=== PATIENT | female | born 1945 | race Caucasian/White ===

== ENCOUNTER 2020-07-29 18:59 | Inpatient (IN) | payer MEDICARE, OTHER ==
[~2020-07-29] VITALS: Ht 167.6 cm; Wt 83.9 kg
[2020-07-29 19:07] VITALS: BP 132/50
--- NOTE | 2020-07-29 19:07 | NUR ---
Admitted a 75 yrs old female from [facility] at 1830 [facility] ambulance staff. Pt. A/Ox4, verbally responsive and able to make needs known. Senegalese speaking but able to understand Cuban. Notified Attending/Admitting STOGIE PACKER promptly, aware pt. of arrival. V/S taken, placed pt. on isolation precaution for COVID-19. Safety measures in place. Call light and all frequently used items within pt. reach. Will endorsed to oncoming shift accordingly.
--- NOTE | 2020-07-29 19:30 | NUR ---
pt received in bed. Denies pain or SOB at this time. On 4L NC. SR on monitor. Bed is locked and in lowest position. No other issues or concerns at this time.
[2020-07-29 21:18] VITALS: BP 128/47
[2020-07-29] MEDS: CEFTRIAXONE 1 G in IV DEXTROSE 5% 50 ML IV SCH (21:30)
[2020-07-29] MEDS ORDERED: ALBUTEROL SULFATE 8 GM HFA.AER.AD IH PRN (21:30)
[2020-07-29] MEDS ORDERED: ENOXAPARIN SODIUM 40 MG/0.4 ML DISP.SYRIN SQ SCH (21:30)
[2020-07-29] MEDS ORDERED: ONDANSETRON 4 MG/2 ML VIAL IV PRN (21:30)
[2020-07-29] MEDS: AZITHROMYCIN IV 500 MG in IV DEXTROSE 5% 250 ML IV SCH (21:30)
--- NOTE | 2020-07-29 21:45 | NUR ---
waiting for nursing harvest supervisor to bring up Azithromycin and Rocephin antibiotics
--- NOTE | 2020-07-29 21:45 | NUR ---
Waiting for pharmacy to verify Lovenox. Pharmacy already called and notified.
[2020-07-29] MEDS ORDERED: CEFTRIAXONE /D5W 50ML IVPB **ER PYXIS IV ONE (22:32)
[2020-07-29] MEDS ORDERED: AZITHROMYCIN 500 MG VIAL IV ONE (22:32)
[2020-07-30 00:18] VITALS: BP 120/51
[2020-07-30] MEDS: ACETAMINOPHEN 325 MG TABLET PO PRN (00:31)
[2020-07-30 04:18] VITALS: BP 138/55
--- NOTE | 2020-07-30 07:02 | NUR ---
Pt slept throughout the night with no complaints. Denies pain or SOB. Safety and comfort provided. SR on monitor. No other issues or concerns at this time. Will endorse to day shift.
[2020-07-30 07:28] LABS: BASOPHILS % (AUTO) 0.2 % (0.0-2.0); HEMATOCRIT 32.9 % (31.2-41.9); LYMPHOCYTES # (AUTO) 0.9 K/uL (20.0-40.0); LYMPHOCYTES % (AUTO) 8.2 % (20.5-51.5); MEAN CORPUSCULAR HEMOGLOBIN 32.2 uug (24.7-32.8); MEAN CORPUSCULAR HGB CONC 33 g/dL (32.3-35.6); MEAN CORPUSCULAR VOLUME 96.4 fL (75.5-95.3); MONOCYTES # (AUTO) 0.6 K/uL (2.0-10.0); MONOCYTES % (AUTO) 5.3 % (0.0-11.0); NEUTROPHILS # (AUTO) 9.2 K/uL (1.8-8.9); NEUTROPHILS % (AUTO) 86.3 % (38.5-71.5); PLATELET COUNT (AUTO) 332 K/uL (179-408); RED BLOOD CELL COUNT(AUTO) 3.41 MIL/uL (3.63-4.92); WHITE BLOOD COUNT (AUTO) 10.7 K/uL (3.8-11.8)
--- NOTE | 2020-07-30 07:45 | NUR ---
Received PT in bed, awake AO X 4. Language barrier, so office lead needed. PT is cooperative and pleasant. Makes needs known to staff and interacts with staff when engaged to. No acute distress or SOB noted. PT constantly FaceTimes with family. Safety measures provided, call light within reach, bed low and lock. Will continue to monitor.
[2020-07-30 07:59] LABS: BILIRUBIN,TOTAL 0.4 mg/dL (0.2-1.0); CREATININE 0.9 mg/dL (0.6-1.3); POTASSIUM 3.7 mmol/L (3.5-5.1); TOTAL PROTEIN, SERUM 6.9 g/dL (6.4-8.2)
[2020-07-30] MEDS: DEXAMETHASONE SOD PHOSPHATE 4 MG INJ IV SCH ×2 (08:47→09:00)
[2020-07-30] MEDS: AMIODARONE HCL 200 MG TABLET PO SCH ×2 (08:47→21:46)
[2020-07-30] MEDS: FUROSEMIDE 20 MG TABLET PO SCH (08:55)
[2020-07-30] MEDS: APIXABAN 5 MG TABLET PO SCH ×2 (08:55→21:49)
[2020-07-30] MEDS ORDERED: ASPIRIN 81 MG TAB.CHEW PO SCH (09:00)
[2020-07-30 11:52] VITALS: BP 129/52
[2020-07-30 16:00] VITALS: BP 129/56
[2020-07-30] MEDS ORDERED: REMDESIVIR (CHARGED) 200 MG in IV NORMAL SALINE 210 ML IV ONE (17:00)
--- NOTE | 2020-07-30 18:33 | NUR ---
PT in bed, awake AO X 4 with safety measures. Nurse spoke with daughter and explained new order of Remdesimir per physician's order. Nurse answered all daughters concerns. PT seemed more relax and less worried. PT stated content and hopefulness. No acute distress or SOB noted. Vitals documented. No complain of pain noted at this time. PT resting in bed. Safety measures provided, call light within reach, bed low and lock. Will endorse to rouge miller nurse
--- NOTE | 2020-07-30 19:30 | NUR ---
Received patient awake and resting in bed. On 4L NC and tolerating well. SR on monitor. Denies SOB or chest pain at this time. No other issues or concerns
[2020-07-30 20:24] VITALS: BP 120/78
[2020-07-30] MEDS: CEFTRIAXONE 1 G in IV DEXTROSE 5% 50 ML IV SCH (21:46)
[2020-07-30] MEDS: AZITHROMYCIN IV 500 MG in IV DEXTROSE 5% 250 ML IV SCH (22:37)
--- NOTE | 2020-07-30 23:34 | NUR ---
Pts IV infiltrated. Was taken out and ice pack was provided. Pt declines another IV at this time at states she wants to wait till the morning for a new IV placement. Explained the importance of her IV access and the necessity for her IV medications and having IV access due to Telemetry status and patient still declined new IV at this time. IV was taken out with 20min left on Zithromax antibiotics.
[2020-07-31 00:21] VITALS: BP 106/44
[2020-07-31 04:18] VITALS: BP 131/56
--- NOTE | 2020-07-31 06:42 | NUR ---
Pt slept throughout the night. On 4L NC sating at 99%. Denies SOB or pain at this time. Another attempt to start IV was made but patient declined again at this time. MRSA swab collected per order and sent to lab. Pt made aware that urine and sputum sample is needed. Will also make oncoming nurse aware that sample needs to be collected. Safety and comfort provided. No other issues or concerns at this time. Will endorse to day shift.
--- NOTE | 2020-07-31 07:50 | NUR ---
Received PT in bed, awake AO X 4. Language barrier, so car scrubber needed. PT is cooperative and pleasant. Makes needs known to staff and interacts with staff when engaged to. No acute distress or SOB noted. PT constantly FaceTimes with family. No IV site avaliable. PT refused but willing to get it later on. Safety measures provided, call light within reach, bed low and lock. Will continue to monitor.
[2020-07-31 08:16] LABS: BASOPHILS # (AUTO) 0.1 K/uL (0.0-8.0); BASOPHILS % (AUTO) 0.8 % (0.0-2.0); EOSINOPHILS # (AUTO) 0.1 K/uL (0.0-0.7); EOSINOPHILS % (AUTO) 1.3 % (0.0-7.0); HEMATOCRIT 33.1 % (31.2-41.9); HEMOGLOBIN 10.8 g/dL (10.9-14.3); LYMPHOCYTES # (AUTO) 1.4 K/uL (20.0-40.0); LYMPHOCYTES % (AUTO) 19.5 % (20.5-51.5); MEAN CORPUSCULAR HEMOGLOBIN 31.7 uug (24.7-32.8); MEAN CORPUSCULAR HGB CONC 33 g/dL (32.3-35.6); MEAN CORPUSCULAR VOLUME 97.4 fL (75.5-95.3); MONOCYTES # (AUTO) 0.7 K/uL (2.0-10.0); MONOCYTES % (AUTO) 9.4 % (0.0-11.0); NEUTROPHILS # (AUTO) 4.8 K/uL (1.8-8.9); PLATELET COUNT (AUTO) 277 K/uL (179-408)
[2020-07-31 08:25] LABS: BILIRUBIN,DIRECT 0.1 mg/dL (0.0-0.2); BILIRUBIN,TOTAL 0.4 mg/dL (0.2-1.0); CREATININE 0.9 mg/dL (0.6-1.3); POTASSIUM 3.8 mmol/L (3.5-5.1); TOTAL PROTEIN, SERUM 6.5 g/dL (6.4-8.2)
[2020-07-31] MEDS: APIXABAN 5 MG TABLET PO SCH ×2 (09:02→21:30)
[2020-07-31] MEDS: FUROSEMIDE 20 MG TABLET PO SCH (09:02)
[2020-07-31] MEDS: AMIODARONE HCL 200 MG TABLET PO SCH ×2 (09:02→21:30)
[2020-07-31 11:00] VITALS: BP 130/55
[2020-07-31 15:03] VITALS: BP 130/48
--- NOTE | 2020-07-31 17:15 | NUR ---
Nurse attempted to get IV access with no success. Attempted twice and received order from CRACK OFF PERSON. PT obtained IV midline via PICC nurse. IV site documented. No bleeding or swelling noted. IV access patent and intact.
[2020-07-31] MEDS: DEXAMETHASONE SOD PHOSPHATE 4 MG INJ IV SCH (18:12)
[2020-07-31] MEDS: REMDESIVIR (CHARGED) 100 MG in IV NORMAL SALINE 100 ML IV SCH (18:13)
--- NOTE | 2020-07-31 19:04 | NUR ---
PT in bed, awake AO X 4 with safety measures. Nurse answered all PTs concerns. PT seemed more relax and less worried. PT stated content and hopefulness. No acute distress or SOB noted. Vitals documented. No complain of pain noted at this time. PT resting in bed. Safety measures provided, call light within reach, bed low and lock. Will endorse to material handler 2nd shift nurse
--- NOTE | 2020-07-31 19:30 | NUR ---
Pt received in bed, awake and alert. Pt is on 4L NC and is sating at 97%. Denies pain or SOB. Pt is ambulatory. Bed is locked and in lowest position. Call light is within reach. No other issues or concerns at this time.
[2020-07-31 20:55] VITALS: BP 150/70
[2020-07-31] MEDS: AZITHROMYCIN IV 500 MG in IV DEXTROSE 5% 250 ML IV SCH (21:31)
[2020-08-01 01:41] VITALS: BP 125/52
[2020-08-01 05:13] VITALS: BP 115/50
--- NOTE | 2020-08-01 06:26 | NUR ---
Pt slept throughout the night. Denies pain or SOB. On 4L sating at 97%. Safety and comfort provided. Call light is within reach. No other issues or concerns at this time. Will endorse to day shift.
--- NOTE | 2020-08-01 07:12 | NUR ---
Patient in bed, awake, laying comfortably in bed, alert and orientedx4, able to make needs known. With right upper arm midline IV access, patent and infusing well. Patient is on oxygen via NC at 4LPM. No s/s of respiratory distress. No chest pain or IV site pain reported.
[2020-08-01 07:31] LABS: BASOPHILS % (AUTO) 0.2 % (0.0-2.0); HEMATOCRIT 34.1 % (31.2-41.9); HEMOGLOBIN 11.2 g/dL (10.9-14.3); LYMPHOCYTES # (AUTO) 0.6 K/uL (20.0-40.0); MEAN CORPUSCULAR HEMOGLOBIN 31.7 uug (24.7-32.8); MEAN CORPUSCULAR HGB CONC 33 g/dL (32.3-35.6); MEAN CORPUSCULAR VOLUME 96.7 fL (75.5-95.3); MONOCYTES # (AUTO) 0.1 K/uL (2.0-10.0); MONOCYTES % (AUTO) 1.5 % (0.0-11.0); NEUTROPHILS # (AUTO) 6.2 K/uL (1.8-8.9); NEUTROPHILS % (AUTO) 90.3 % (38.5-71.5); PLATELET COUNT (AUTO) 290 K/uL (179-408); RED BLOOD CELL COUNT(AUTO) 3.53 MIL/uL (3.63-4.92); WHITE BLOOD COUNT (AUTO) 6.9 K/uL (3.8-11.8)
[2020-08-01 08:17] LABS: BILIRUBIN,DIRECT 0.1 mg/dL (0.0-0.2); BILIRUBIN,TOTAL 0.3 mg/dL (0.2-1.0); POTASSIUM 4.4 mmol/L (3.5-5.1); TOTAL PROTEIN, SERUM 6.5 g/dL (6.4-8.2)
[2020-08-01] MEDS: FUROSEMIDE 20 MG TABLET PO SCH (09:03)
[2020-08-01] MEDS: DEXAMETHASONE SOD PHOSPHATE 4 MG INJ IV SCH (09:03)
[2020-08-01] MEDS: APIXABAN 5 MG TABLET PO SCH ×2 (09:06→20:52)
[2020-08-01] MEDS: AMIODARONE HCL 200 MG TABLET PO SCH ×2 (09:19→20:53)
[2020-08-01 11:00] VITALS: BP 138/50
[2020-08-01 15:15] VITALS: BP 147/50
[2020-08-01] MEDS: REMDESIVIR (CHARGED) 100 MG in IV NORMAL SALINE 100 ML IV SCH (17:50)
--- NOTE | 2020-08-01 18:53 | NUR ---
Patient awake, laying comfortably in bed. Right upper midline access patent and infusing well, tolerated medications well. Still on oxygen 4LPM via NC. No signs of respiratory distress noted. RN attended to patient's concerns. Ensured safety at all times. Will endorse to security shift supervisor nurse.
[2020-08-01] MEDS: AZITHROMYCIN IV 500 MG in IV DEXTROSE 5% 250 ML IV SCH (20:53)
[2020-08-01 21:23] VITALS: BP 114/72
--- NOTE | 2020-08-01 23:28 | NUR ---
Received pt resting in bed. AAO x4. On 4L O2 via NC, no acute distress noted. Denies pain/ discomfort. Due meds given as ordered. Safety measures maintained. Call light and personal items within reach. Will continue to monitor.
[2020-08-02] VITALS (8 sets, daily range): BP systolic 122–150; BP diastolic 46–60
[2020-08-02 08:24] LABS: BASOPHILS % (AUTO) 0.1 % (0.0-2.0); HEMATOCRIT 32.9 % (31.2-41.9); HEMOGLOBIN 10.8 g/dL (10.9-14.3); LYMPHOCYTES # (AUTO) 0.7 K/uL (20.0-40.0); LYMPHOCYTES % (AUTO) 8.5 % (20.5-51.5); MEAN CORPUSCULAR HEMOGLOBIN 31.5 uug (24.7-32.8); MEAN CORPUSCULAR HGB CONC 33 g/dL (32.3-35.6); MONOCYTES # (AUTO) 0.6 K/uL (2.0-10.0); NEUTROPHILS # (AUTO) 7.3 K/uL (1.8-8.9); NEUTROPHILS % (AUTO) 84.4 % (38.5-71.5); PLATELET COUNT (AUTO) 277 K/uL (179-408); RED BLOOD CELL COUNT(AUTO) 3.42 MIL/uL (3.63-4.92); WHITE BLOOD COUNT (AUTO) 8.7 K/uL (3.8-11.8)
[2020-08-02] MEDS: DEXAMETHASONE SOD PHOSPHATE 4 MG INJ IV SCH (08:57)
[2020-08-02] MEDS: AMIODARONE HCL 200 MG TABLET PO SCH ×2 (08:57→21:13)
[2020-08-02] MEDS: FUROSEMIDE 20 MG TABLET PO SCH (08:57)
[2020-08-02 09:14] LABS: BILIRUBIN,DIRECT 0.2 mg/dL (0.0-0.2); BILIRUBIN,TOTAL 0.4 mg/dL (0.2-1.0); CREATININE 0.9 mg/dL (0.6-1.3); TOTAL PROTEIN, SERUM 6.3 g/dL (6.4-8.2)
[2020-08-02] MEDS: APIXABAN 5 MG TABLET PO SCH ×2 (09:56→21:17)
[2020-08-02] MEDS: REMDESIVIR (CHARGED) 100 MG in IV NORMAL SALINE 100 ML IV SCH (16:18)
--- NOTE | 2020-08-02 16:18 | NUR ---
REMDESIVIR STARTED ORDERED VITALS CHECKED AND RECORDED WITH NO ADVERSE EFFECTS AT THIS TIME WILL CONTINUE TO OBSERVE
--- NOTE | 2020-08-02 18:00 | NUR ---
O2 TITRATED TO 2L/M AND PATIENT IS STILL SATING AT 97 PERCENT WILL CONTINUE TO OBSERVE.
--- NOTE | 2020-08-02 19:30 | NUR ---
Pt AAOx4. In no acute distress. Denies any pain or SOB. On O2 at 2LPM mary NC in place. NSR on tele at 75/min. Right upper arm midline intact and patent. COVID isolation precaution initiated. Safety measure initiated and call rankin within reach.
[2020-08-02] MEDS: AZITHROMYCIN IV 500 MG in IV DEXTROSE 5% 250 ML IV SCH (21:18)
[2020-08-03] VITALS (8 sets, daily range): BP systolic 118–148; BP diastolic 45–60
--- NOTE | 2020-08-03 06:31 | NUR ---
No significant event noted throughout the shift. Slept well last night. Denies any pain or SOB. O2 at 2LPM via NC in place. No adverse effect noted from IV ABX. NSR on tele at 88/min. Needs attended to and met. COVID precaution maintained. Safety measure maintained.
[2020-08-03 07:48] LABS: BASOPHILS % (AUTO) 0.2 % (0.0-2.0); EOSINOPHILS % (AUTO) 0.1 % (0.0-7.0); HEMATOCRIT 32.9 % (31.2-41.9); LYMPHOCYTES # (AUTO) 0.7 K/uL (20.0-40.0); LYMPHOCYTES % (AUTO) 8.8 % (20.5-51.5); MEAN CORPUSCULAR HEMOGLOBIN 32.2 uug (24.7-32.8); MEAN CORPUSCULAR HGB CONC 34 g/dL (32.3-35.6); MEAN CORPUSCULAR VOLUME 96.2 fL (75.5-95.3); MONOCYTES # (AUTO) 0.5 K/uL (2.0-10.0); NEUTROPHILS # (AUTO) 7.1 K/uL (1.8-8.9); NEUTROPHILS % (AUTO) 84.9 % (38.5-71.5); PLATELET COUNT (AUTO) 275 K/uL (179-408); RED BLOOD CELL COUNT(AUTO) 3.42 MIL/uL (3.63-4.92); WHITE BLOOD COUNT (AUTO) 8.4 K/uL (3.8-11.8)
[2020-08-03 08:11] LABS: BILIRUBIN,DIRECT 0.1 mg/dL (0.0-0.2); BILIRUBIN,TOTAL 0.4 mg/dL (0.2-1.0); TOTAL PROTEIN, SERUM 6.2 g/dL (6.4-8.2)
[2020-08-03 08:15] LABS: THYROID STIMULATING HORMONE 0.281 mIU/mL (0.358-3.740)
[2020-08-03] MEDS: FUROSEMIDE 20 MG TABLET PO SCH (08:35)
[2020-08-03] MEDS: DEXAMETHASONE SOD PHOSPHATE 4 MG INJ IV SCH (08:35)
[2020-08-03] MEDS: AMIODARONE HCL 200 MG TABLET PO SCH ×2 (08:36→21:00)
[2020-08-03] MEDS: APIXABAN 5 MG TABLET PO SCH ×2 (08:40→21:39)
--- NOTE | 2020-08-03 09:30 | NUR ---
RECEIVED AWAKE ALERT AND ORIENTED REMAIN ON RESPIRATORY ISOLATION AND PRECAUTION ON O2 AT 2L/M BY NASAL CANULLA WITH NO SOB AT THIS TIME MID LINE RIGHT UPPER ARM REMAIN INTACT AND PATENT CALL LIGHT AND PERSONAL BELONGINGS ARE WITHIN EASY REACH MADE COMFORTABLE AND WILL CONTINUE TO OBSERVE.
[2020-08-03] MEDS: FUROSEMIDE 20 MG/2 ML VIAL IV SCH (11:59)
--- NOTE | 2020-08-03 12:00 | NUR ---
PATIENT SEEN AND EXAMINED BY DR TORO SHRUB PLANTER WITH NEW ORDERS AND NOTED.
[2020-08-03] MEDS: REMDESIVIR (CHARGED) 100 MG in IV NORMAL SALINE 100 ML IV SCH (16:52)
--- NOTE | 2020-08-03 17:58 | NUR ---
REDESIVIR INFUSED ORDERED WITH NO ADVERSE OR ALLERGIC REACTION AT THIS TIME.REMAIN ON O2 ORDERED WITH ADEQUATE SATURATION AT THIS TIME COVID ISOLATION AND PRECAUTION OBSERVED WILL CONTINUE TO OBSERVE.
[2020-08-03] MEDS ORDERED: AZITHROMYCIN 250 MG TABLET PO SCH (21:00)
[2020-08-04 00:48] VITALS: BP 127/54
[2020-08-04 04:00] VITALS: BP 141/56
[2020-08-04] MEDS: AMIODARONE HCL 200 MG TABLET PO SCH ×2 (08:52→20:20)
[2020-08-04] MEDS: DEXAMETHASONE SOD PHOSPHATE 4 MG INJ IV SCH (08:52)
[2020-08-04] MEDS: FUROSEMIDE 20 MG/2 ML VIAL IV SCH (08:52)
[2020-08-04] MEDS: APIXABAN 5 MG TABLET PO SCH ×2 (08:53→21:27)
[2020-08-04 11:39] VITALS: BP 139/40
--- NOTE | 2020-08-04 14:59 | NUR ---
PER THE [facility] HAS NO RECORD FOR PATIENTS HOME MEDS SO I CALLED PATIENTS DAUGHTER NAHOMI [phone] TO GET HER MEDICATION LIST PATIENT STATED THAT SHE WAS NOT SURE OF HER HOME MEDS LEFT HER A MESSAGE.
[2020-08-04 15:06] LABS: CRYPTOCOCCUS AB, SERUM Negative (Negative)
[2020-08-04 16:00] VITALS: BP 133/51
--- NOTE | 2020-08-04 19:45 | NUR ---
convalescent therapy complete. no reactions. v/s stable. no s/s of distress noted. will continue to monitor patient. Addendum: 08/05/20 at 0008 by FATOU GALICIA RN wrong patient documentation.
[2020-08-04 20:00] VITALS: BP 141/53
[2020-08-04 21:06] LABS: COCCIDIOIDES CF SERUM Negative (Neg:<1:2)
[2020-08-04] MEDS: ACETAMINOPHEN 325 MG TABLET PO PRN (21:53)
[2020-08-05] VITALS: BP 144/55
[2020-08-05 04:00] VITALS: BP 142/53
[2020-08-05 07:06] LABS: BASOPHILS % (AUTO) 0.1 % (0.0-2.0); HEMOGLOBIN 11.8 g/dL (10.9-14.3); LYMPHOCYTES # (AUTO) 0.7 K/uL (20.0-40.0); LYMPHOCYTES % (AUTO) 9.4 % (20.5-51.5); MEAN CORPUSCULAR HGB CONC 34 g/dL (32.3-35.6); MEAN CORPUSCULAR VOLUME 94.7 fL (75.5-95.3); MONOCYTES # (AUTO) 0.6 K/uL (2.0-10.0); MONOCYTES % (AUTO) 7.4 % (0.0-11.0); NEUTROPHILS # (AUTO) 6.5 K/uL (1.8-8.9); NEUTROPHILS % (AUTO) 83.1 % (38.5-71.5); PLATELET COUNT (AUTO) 292 K/uL (179-408); RED BLOOD CELL COUNT(AUTO) 3.69 MIL/uL (3.63-4.92); WHITE BLOOD COUNT (AUTO) 7.9 K/uL (3.8-11.8)
[2020-08-05 07:18] LABS: POTASSIUM 3.9 mmol/L (3.5-5.1)
--- NOTE | 2020-08-05 07:30 | NUR ---
Received patient awake, alert and oriented times 4. Patient is on 2L of oxygen. No sign of distress noted at this time. Safety precautions are in place. Will continue to monitor.
[2020-08-05] MEDS: AMIODARONE HCL 200 MG TABLET PO SCH (09:36)
[2020-08-05] MEDS: APIXABAN 5 MG TABLET PO SCH ×2 (09:36→20:20)
[2020-08-05] MEDS: DEXAMETHASONE SOD PHOSPHATE 4 MG INJ IV SCH (09:36)
[2020-08-05] MEDS: FUROSEMIDE 20 MG/2 ML VIAL IV SCH (09:36)
[2020-08-05 12:00] VITALS: BP 147/61
--- NOTE | 2020-08-05 13:06 | NUR ---
no consent RN will call as soon as she gets consent for Cat Scan
[2020-08-05 16:00] VITALS: BP 122/62
--- NOTE | 2020-08-05 19:43 | NUR ---
Patient is resting in bed. No sign of distress noted. All medications given as ordered. Safety precautions in place. Will endorse to oncoming nurse.
--- NOTE | 2020-08-05 20:40 | NUR ---
PATIENT DISCHARGED HOME VIA [facility] WITH 2 SENIOR POLICY ADVISOR. PATIENT'S RIGHT UPPER ARM MIDLINE REMOVED. NIGHT MEDICATION GIVEN PRIOR TO DISCHARGE. PATIENT LEFT WITH DISCHARGE PAPERS AND BELONGINGS. LEFT IN NO ACUTE DISTRESS.
[2020-08-06] MEDS ORDERED: AMIODARONE HCL 200 MG TABLET PO SCH (09:00)
[2020-08-06] MEDS ORDERED: FUROSEMIDE 20 MG TABLET PO SCH (09:00)
== END 2020-08-05 21:09 | disposition home health service (06) | DRG 177 ==
LOC: TELE3 18:59
PROVIDERS: ADMIT Nurse Practitioner Acute Care; ATTEND Nurse Practitioner Acute Care
PROC: XW033E5 Introduction of Remdesivir Anti-infective into Peripheral Vein, Percutaneous Approach, New Technology Group 5 (ICD-10-PCS; principal; 2020-07-30)
PROC: 05HB33Z Insertion of Infusion Device into Right Basilic Vein, Percutaneous Approach (ICD-10-PCS; 2020-07-31)
DX: U07.1 COVID-19 (principal); J12.82 Pneumonia due to coronavirus disease 2019; J96.01 Acute respiratory failure with hypoxia; E43 Unspecified severe protein-calorie malnutrition; I50.33 Acute on chronic diastolic (congestive) heart failure; J15.9 Unspecified bacterial pneumonia; J98.11 Atelectasis; J44.0 Chronic obstructive pulmonary disease with (acute) lower respiratory infection; J91.8 Pleural effusion in other conditions classified elsewhere; I48.0 Paroxysmal atrial fibrillation; E05.90 Thyrotoxicosis, unspecified without thyrotoxic crisis or storm; E11.9 Type 2 diabetes mellitus without complications; I25.10 Atherosclerotic heart disease of native coronary artery without angina pectoris; Z85.3 Personal history of malignant neoplasm of breast; Z79.01 Long term (current) use of anticoagulants; Z79.899 Other long term (current) drug therapy; Z90.12 Acquired absence of left breast and nipple; Z99.81 Dependence on supplemental oxygen; I11.0 Hypertensive heart disease with heart failure; E88.09 Other disorders of plasma-protein metabolism, not elsewhere classified; Z68.29 Body mass index [BMI] 29.0-29.9, adult
CPT/HCPCS: 36415; 71045; 82378; 82747; 83550; 83605; 83615; 83735; 84443; 85014; 85025; 85610; 85730; 86140; 86300; 86480; 86803; 87040; 87328; 87536; G0378; J0456; J0696; J1100; J1940; J3490; J3535; J7030; J7050; J7060

== ENCOUNTER 2024-11-14 22:38 | Inpatient (IN) | payer MEDICARE, OTHER ==
[~2024-11-14] VITALS: Ht 170.2 cm; Wt 95.3 kg
[2024-11-14 22:00] VITALS: BP 174/71; TEMP 100.8; O2SAT 97
[2024-11-14] MEDS ORDERED: LOSA1TAB36 PO (22:58)
[2024-11-14] MEDS ORDERED: LANS30CA54 PO (22:58)
[2024-11-14] MEDS ORDERED: METO-356 PO (22:58)
[2024-11-14] MEDS ORDERED: LETR2.5T PO (22:58)
[2024-11-14] MEDS ORDERED: AMIO100T4 PO (23:01)
[2024-11-14] MEDS ORDERED: VALS1TAB4 PO (23:01)
[2024-11-14] MEDS ORDERED: ONDANSETRON 4 MG/2 ML VIAL IV PRN (23:15)
[2024-11-14] MEDS ORDERED: ZOLPIDEM 5 MG TABLET PO PRN (23:15)
[2024-11-14] MEDS ORDERED: MAGNESIUM HYDROXIDE 30 ML LIQUID UDC PO PRN (23:15)
[2024-11-14] MEDS ORDERED: REMEDY ESSENTIAL ZINC PASTE 113 GM TP PRN (23:15)
[2024-11-14] MEDS ORDERED: CEFEPIME HCL 1 G VIAL ONE (23:50)
[2024-11-15] VITALS (9 sets, daily range): BP systolic 104–142; BP diastolic 43–61; TEMP 97.4–98.2; O2SAT 94–99
[2024-11-15] MEDS: FUROSEMIDE 40 MG/4 ML VIAL IV ONE (00:34)
[2024-11-15] MEDS: CEFEPIME HCL 2 GM in IV DEXTROSE 5% 100 ML IV SCH ×2 (00:35→00:59)
[2024-11-15] MEDS: VALSARTAN 160 MG TABLET PO SCH (00:43)
[2024-11-15] MEDS: IV NS 1000 ML 1,000 ML IV PRN (00:59)
[2024-11-15] MEDS: HEPARIN/D5W DRIP 500 ML IV PRN (01:00)
[2024-11-15] MEDS ORDERED: VANCOMYCIN 1000 MG VIAL ONE (01:24)
[2024-11-15] MEDS: VANCOMYCIN IV 1,000 MG in IV NORMAL SALINE 250 ML IV ONE (01:59)
[2024-11-15] MEDS ORDERED: diphenhydrAMINE 50 MG/1 ML VIAL IV ONE (04:15)
[2024-11-15 06:46] LABS: BASOPHILS % (AUTO) 0.3 % (0.0-2.0); EOSINOPHILS # (AUTO) 0.2 K/uL (0.0-0.7); EOSINOPHILS % (AUTO) 2.3 % (0.0-7.0); HEMATOCRIT 31.5 % (31.2-41.9); HEMOGLOBIN 10.9 g/dL (10.9-14.3); LYMPHOCYTES # (AUTO) 1.2 K/uL (0.8-4.8); LYMPHOCYTES % (AUTO) 17.9 % (20.5-51.5); MEAN CORPUSCULAR HEMOGLOBIN 35.5 uug (24.7-32.8); MEAN CORPUSCULAR HGB CONC 34 g/dL (32.3-35.6); MEAN CORPUSCULAR VOLUME 103.1 fL (75.5-95.3); MONOCYTES # (AUTO) 0.8 K/uL (0.1-1.30); MONOCYTES % (AUTO) 11.7 % (0.0-11.0); NEUTROPHILS # (AUTO) 4.5 K/uL (1.8-8.9); NEUTROPHILS % (AUTO) 67.8 % (38.5-71.5); PLATELET COUNT (AUTO) 312 K/uL (179-408); RED BLOOD CELL COUNT(AUTO) 3.06 MIL/uL (3.63-4.92); RED CELL DISTRIBUTION WIDTH 15.3 % (12.3-17.7); WHITE BLOOD COUNT (AUTO) 6.7 K/uL (3.8-11.8)
[2024-11-15 07:03] LABS: CALCIUM 9.5 mg/dL (8.5-10.1); CARBON DIOXIDE 29 mmol/L (21-32); CHLORIDE 104 mmol/L (98-107); CREATININE 1.5 mg/dL (0.6-1.3); GLUCOSE 157 mg/dL (74-106); MAGNESIUM 1.4 mg/dL (1.8-2.4); PHOSPHOROUS 5.6 mg/dL (2.5-4.9); POTASSIUM 3.4 mmol/L (3.5-5.1); SODIUM SERUM 143 mmol/L (136-145); UREA NITROGEN, BLOOD 30 mg/dL (7-18)
[2024-11-15 07:14] LABS: DIFFERENTIAL COMMENT 1
[2024-11-15] MEDS ORDERED: CEFEPIME HCL 2 GM in IV DEXTROSE 5% 100 ML IV SCH (08:00)
[2024-11-15] MEDS ORDERED: NEUTRA PHOS PACKET PO ONE (08:45)
[2024-11-15] MEDS ORDERED: MAGNESIUM OXIDE 400 MG TABLET PO ONE ×3 (08:45→09:15)
[2024-11-15] MEDS ORDERED: FUROSEMIDE 20 MG/2 ML VIAL IV SCH (09:00)
[2024-11-15 09:10] LABS: LYMPHOCYTES % (MANUAL) 15 % (20-40); METAMYELOCYTES % 1 % (0-1); MONOCYTES % (MANUAL) 11 % (2-10); NEUTROPHILS % (MANUAL) 73 % (42-75); PLATELET ESTIMATE ADEQUATE
[2024-11-15] MEDS: METOPROLOL SUCCINATE XL 25 MG TAB.SR.24H PO SCH (09:29)
[2024-11-15] MEDS: AMIODARONE HCL 200 MG TABLET PO SCH (09:29)
[2024-11-15] MEDS: POTASSIUM CHLORIDE 20 MEQ POWDER PACKET GT ONE (09:29)
[2024-11-15] MEDS: FUROSEMIDE 20 MG/2 ML VIAL IV SCH (09:29)
[2024-11-15] MEDS: APIXABAN 5 MG TABLET PO SCH (09:31)
[2024-11-15] MEDS: MAGNESIUM SULFATE/D5W 100 ML IV SCH (09:31)
[2024-11-15 12:51] LABS: *BILIRUBIN,URIN NEGATIVE (NEGATIVE); *BLOOD, URINE NEGATIVE (NEGATIVE); *CLARITY,URINE CLEAR (CLEAR); *COLOR,URINE YELLOW (YELLOW); *KETONES,URINE NEGATIVE (NEGATIVE); *PROTEIN,URINE NEGATIVE (NEGATIVE); *UROBILINOGEN,URINE 0.2 E.U./dl (NORMAL); LEUKOCYTE ESTERASE ,URINE NEGATIVE (NEGATIVE); NITRITE, URINE NEGATIVE (NEGATIVE); PH,URINE 5.5 (5.0-8.0); UGLUCOSE NEGATIVE (NEGATIVE)
[2024-11-15] MEDS ORDERED: FURO20TA4 PO (13:37)
[2024-11-15] MEDS ORDERED: METF-442 PO (13:37)
[2024-11-15] MEDS ORDERED: APIX5TAB PO (13:37)
[2024-11-15] MEDS ORDERED: METO-358 PO (13:40)
[2024-11-15] MEDS ORDERED: CHOL100062 PO (13:49)
[2024-11-15] MEDS ORDERED: DILT120T2 PO (14:07)
[2024-11-15] MEDS ORDERED: [UNRECOGNIZED DRUG - CODE] IV (14:10)
[2024-11-15] MEDS ORDERED: DENO120V SQ (14:10)
[2024-11-15] MEDS ORDERED: ANAS1TAB50 PO (14:11)
[2024-11-15] MEDS ORDERED: ICOS1CAP PO (14:11)
[2024-11-15] MEDS ORDERED: ACET325T53 PO (14:12)
[2024-11-15] MEDS: ACETAMINOPHEN 325 MG TABLET PO PRN (21:37)
[2024-11-16] VITALS (7 sets, daily range): BP systolic 125–140; BP diastolic 45–54; TEMP 97.5–98.5; O2SAT 92–96
[2024-11-16 07:00] LABS: BASOPHILS # (AUTO) 0.1 K/UL (0.0-0.2); BASOPHILS % (AUTO) 1.1 % (0.0-2.0); EOSINOPHILS # (AUTO) 0.4 K/uL (0.0-0.7); EOSINOPHILS % (AUTO) 6.9 % (0.0-7.0); HEMATOCRIT 31.9 % (31.2-41.9); HEMOGLOBIN 11.1 g/dL (10.9-14.3); LYMPHOCYTES # (AUTO) 1.4 K/uL (0.8-4.8); LYMPHOCYTES % (AUTO) 25.1 % (20.5-51.5); MEAN CORPUSCULAR HGB CONC 35 g/dL (32.3-35.6); MEAN CORPUSCULAR VOLUME 102.9 fL (75.5-95.3); MONOCYTES # (AUTO) 0.8 K/uL (0.1-1.30); MONOCYTES % (AUTO) 14.1 % (0.0-11.0); NEUTROPHILS % (AUTO) 52.8 % (38.5-71.5); PLATELET COUNT (AUTO) 324 K/uL (179-408); RED CELL DISTRIBUTION WIDTH 15.4 % (12.3-17.7); WHITE BLOOD COUNT (AUTO) 5.6 K/uL (3.8-11.8)
[2024-11-16 07:03] LABS: DIFFERENTIAL COMMENT 1
[2024-11-16 07:14] LABS: ALANINE AMINOTRANSFERASE 6 U/L (14-59); ALKALINE PHOSPHATASE 62 U/L (50-136); ASPARTATE AMINOTRANSFERASE 18 U/L (15-37); BILIRUBIN,TOTAL 0.7 mg/dL (0.2-1.0); CALCIUM 9.9 mg/dL (8.5-10.1); CARBON DIOXIDE 30 mmol/L (21-32); CHLORIDE 101 mmol/L (98-107); CREATINE KINASE, TOTAL 24 U/L (26-192); GLUCOSE 137 mg/dL (74-106); MAGNESIUM 2.3 mg/dL (1.8-2.4); PHOSPHOROUS 5.4 mg/dL (2.5-4.9); SODIUM SERUM 141 mmol/L (136-145); TOTAL PROTEIN, SERUM 7.2 g/dL (6.4-8.2); UREA NITROGEN, BLOOD 44 mg/dL (7-18); VANCOMYCIN,RANDOM 7.8 ug/mL (20.0-30.0)
[2024-11-16 07:16] LABS: POTASSIUM 3.6 mmol/L (3.5-5.1)
[2024-11-16] MEDS: CEFEPIME HCL 2 GM in IV DEXTROSE 5% 100 ML IV SCH (08:39)
[2024-11-16] MEDS: VANCOMYCIN IV 1,000 MG in IV NORMAL SALINE 250 ML IV ONE (09:14)
[2024-11-16] MEDS: OMEGA-3 FATTY ACIDS/FISH OIL CAPSULE PO SCH (18:46)
[2024-11-16] MEDS: METFORMIN HCL 500 MG TABLET PO SCH (18:46)
[2024-11-16] MEDS ORDERED: DILTIAZEM HCL PO SCH (21:00)
[2024-11-16] MEDS: DILTIAZEM HCL CD 120 MG CAP.SR.24H PO SCH (21:23)
[2024-11-17 00:30] VITALS: BP 120/49; TEMP 98.2; O2SAT 95
[2024-11-17 04:38] VITALS: BP 115/52; TEMP 97.8; O2SAT 94
[2024-11-17 08:05] VITALS: BP 125/57; TEMP 98.4; O2SAT 97
[2024-11-17] MEDS: ANASTROZOLE 1 MG TABLET PO SCH (08:33)
[2024-11-17 09:04] LABS: BASOPHILS # (AUTO) 0.1 K/UL (0.0-0.2); BASOPHILS % (AUTO) 1.3 % (0.0-2.0); DIFFERENTIAL COMMENT 0; EOSINOPHILS # (AUTO) 0.5 K/uL (0.0-0.7); HEMATOCRIT 32.4 % (31.2-41.9); HEMOGLOBIN 11.1 g/dL (10.9-14.3); LYMPHOCYTES # (AUTO) 1.3 K/uL (0.8-4.8); MEAN CORPUSCULAR HEMOGLOBIN 35.4 uug (24.7-32.8); MEAN CORPUSCULAR HGB CONC 34 g/dL (32.3-35.6); MEAN CORPUSCULAR VOLUME 103.5 fL (75.5-95.3); MONOCYTES # (AUTO) 0.9 K/uL (0.1-1.30); MONOCYTES % (AUTO) 16.3 % (0.0-11.0); NEUTROPHILS # (AUTO) 2.8 K/uL (1.8-8.9); NEUTROPHILS % (AUTO) 50.4 % (38.5-71.5); PLATELET COUNT (AUTO) 368 K/uL (179-408); RED BLOOD CELL COUNT(AUTO) 3.13 MIL/uL (3.63-4.92); RED CELL DISTRIBUTION WIDTH 15.4 % (12.3-17.7); WHITE BLOOD COUNT (AUTO) 5.6 K/uL (3.8-11.8)
[2024-11-17 09:06] LABS: ALANINE AMINOTRANSFERASE 19 U/L (14-59); ALKALINE PHOSPHATASE 59 U/L (50-136); ASPARTATE AMINOTRANSFERASE 17 U/L (15-37); BILIRUBIN,TOTAL 0.4 mg/dL (0.2-1.0); CARBON DIOXIDE 26 mmol/L (21-32); CHLORIDE 101 mmol/L (98-107); CREATININE 2.1 mg/dL (0.6-1.3); GLUCOSE 134 mg/dL (74-106); MAGNESIUM 2.2 mg/dL (1.8-2.4); PHOSPHOROUS 5.6 mg/dL (2.5-4.9); POTASSIUM 3.5 mmol/L (3.5-5.1); SODIUM SERUM 140 mmol/L (136-145); TOTAL PROTEIN, SERUM 7.1 g/dL (6.4-8.2); UREA NITROGEN, BLOOD 53 mg/dL (7-18)
[2024-11-17 11:07] LABS: PTH, INTACT 47 pg/mL (15-65)
[2024-11-17 11:10] VITALS: BP 135/52; TEMP 97.4; O2SAT 95
[2024-11-17] MEDS: VANCOMYCIN IV 1,000 MG in IV DEXTROSE 5% 250 ML IV ONE (11:46)
[2024-11-17 14:27] LABS: BAND % (MANUAL) 2 % (0-10); LYMPHOCYTES % (MANUAL) 25 % (20-40); MONOCYTES % (MANUAL) 17 % (2-10); NEUTROPHILS % (MANUAL) 54 % (42-75)
[2024-11-17 14:28] LABS: ANISOCYTOSIS 1+; EOSINOPHILS % (MANUAL) 2 % (0-8); PLATELET ESTIMATE ADEQUATE
[2024-11-17 15:21] VITALS: BP 128/48; TEMP 97.5; O2SAT 93
[2024-11-17 20:00] VITALS: BP 134/45; TEMP 97.3; O2SAT 95
[2024-11-18] VITALS: BP 116/44; TEMP 98; O2SAT 94
[2024-11-18 04:29] VITALS: BP 124/47; TEMP 97.8; O2SAT 94
[2024-11-18 07:19] LABS: ALANINE AMINOTRANSFERASE 16 U/L (14-59); ALBUMIN 2.7 g/dL (3.4-5.0); ALKALINE PHOSPHATASE 56 U/L (50-136); ASPARTATE AMINOTRANSFERASE 14 U/L (15-37); BILIRUBIN,TOTAL 0.4 mg/dL (0.2-1.0); CALCIUM 9.5 mg/dL (8.5-10.1); CARBON DIOXIDE 25 mmol/L (21-32); CHLORIDE 104 mmol/L (98-107); CREATININE 2.3 mg/dL (0.6-1.3); GLUCOSE 127 mg/dL (74-106); MAGNESIUM 1.9 mg/dL (1.8-2.4); PHOSPHOROUS 4.5 mg/dL (2.5-4.9); POTASSIUM 3.3 mmol/L (3.5-5.1); SODIUM SERUM 140 mmol/L (136-145); TOTAL PROTEIN, SERUM 6.3 g/dL (6.4-8.2); UREA NITROGEN, BLOOD 57 mg/dL (7-18); VANCOMYCIN,RANDOM 23.6 ug/mL (20.0-30.0)
[2024-11-18 07:22] LABS: BASOPHILS # (AUTO) 0.1 K/UL (0.0-0.2); BASOPHILS % (AUTO) 1.2 % (0.0-2.0); DIFFERENTIAL COMMENT 0; EOSINOPHILS # (AUTO) 0.4 K/uL (0.0-0.7); EOSINOPHILS % (AUTO) 6.6 % (0.0-7.0); HEMATOCRIT 28.7 % (31.2-41.9); HEMOGLOBIN 10.1 g/dL (10.9-14.3); LYMPHOCYTES # (AUTO) 1.1 K/uL (0.8-4.8); LYMPHOCYTES % (AUTO) 18.4 % (20.5-51.5); MEAN CORPUSCULAR HEMOGLOBIN 36.1 uug (24.7-32.8); MEAN CORPUSCULAR HGB CONC 35 g/dL (32.3-35.6); MEAN CORPUSCULAR VOLUME 102.2 fL (75.5-95.3); MONOCYTES # (AUTO) 1.1 K/uL (0.1-1.30); MONOCYTES % (AUTO) 18.5 % (0.0-11.0); NEUTROPHILS # (AUTO) 3.2 K/uL (1.8-8.9); NEUTROPHILS % (AUTO) 55.3 % (38.5-71.5); PLATELET COUNT (AUTO) 333 K/uL (179-408); RED BLOOD CELL COUNT(AUTO) 2.81 MIL/uL (3.63-4.92); RED CELL DISTRIBUTION WIDTH 15.3 % (12.3-17.7); WHITE BLOOD COUNT (AUTO) 5.8 K/uL (3.8-11.8)
[2024-11-18 07:53] VITALS: BP 128/49; TEMP 98.2; O2SAT 95
[2024-11-18 09:45] LABS: BAND % (MANUAL) 1 % (0-10); EOSINOPHILS % (MANUAL) 7 % (0-8); LYMPHOCYTES % (MANUAL) 20 % (20-40); MONOCYTES % (MANUAL) 9 % (2-10); MYELOCYTES % 1 % (0-0); NEUTROPHILS % (MANUAL) 55 % (42-75); PLATELET ESTIMATE ADEQUATE
[2024-11-18] MEDS: POTASSIUM CHLORIDE 10 MEQ TAB.PRT.SR PO ONE (09:56)
[2024-11-18] MEDS: IV NORMAL SALINE 500 ML IV SCH (09:57)
[2024-11-18 11:46] VITALS: BP 149/52; TEMP 97.7; O2SAT 95
[2024-11-18 15:46] VITALS: BP 140/55; TEMP 97.7; O2SAT 97
[2024-11-18] MEDS ORDERED: METOPROLOL SUCCINATE XL 25 MG TAB.SR.24H PO SCH (17:00)
[2024-11-18] MEDS: METOPROLOL SUCCINATE XL 50 MG TAB.SR.24H PO SCH (21:23)
[2024-11-18 21:27] VITALS: BP 139/50; TEMP 97.6; O2SAT 93
[2024-11-19] VITALS (8 sets, daily range): BP systolic 128–165; BP diastolic 43–71; TEMP 97.5–98.3; O2SAT 93–96
[2024-11-19 01:38] LABS: *OCCULT BLOOD STOOL NEGATIVE (NEGATIVE)
[2024-11-19 06:41] LABS: BASOPHILS # (AUTO) 0.1 K/UL (0.0-0.2); BASOPHILS % (AUTO) 1.4 % (0.0-2.0); EOSINOPHILS # (AUTO) 0.4 K/uL (0.0-0.7); EOSINOPHILS % (AUTO) 6.4 % (0.0-7.0); HEMATOCRIT 28.5 % (31.2-41.9); HEMOGLOBIN 9.9 g/dL (10.9-14.3); LYMPHOCYTES % (AUTO) 18.7 % (20.5-51.5); MEAN CORPUSCULAR HEMOGLOBIN 35.9 uug (24.7-32.8); MEAN CORPUSCULAR HGB CONC 35 g/dL (32.3-35.6); MEAN CORPUSCULAR VOLUME 102.9 fL (75.5-95.3); MONOCYTES % (AUTO) 17.6 % (0.0-11.0); NEUTROPHILS # (AUTO) 3.1 K/uL (1.8-8.9); NEUTROPHILS % (AUTO) 55.9 % (38.5-71.5); PLATELET COUNT (AUTO) 335 K/uL (179-408); RED BLOOD CELL COUNT(AUTO) 2.77 MIL/uL (3.63-4.92); RED CELL DISTRIBUTION WIDTH 15.5 % (12.3-17.7); WHITE BLOOD COUNT (AUTO) 5.5 K/uL (3.8-11.8)
[2024-11-19 06:47] LABS: DIFFERENTIAL COMMENT 1
[2024-11-19 07:19] LABS: CALCIUM 8.8 mg/dL (8.5-10.1); CARBON DIOXIDE 25 mmol/L (21-32); CHLORIDE 106 mmol/L (98-107); CREATININE 1.9 mg/dL (0.6-1.3); FERRITIN 170 ng/mL (8-252); GLUCOSE 136 mg/dL (74-106); IRON, SERUM 39 ug/dL (50-175); MAGNESIUM 1.7 mg/dL (1.8-2.4); PHOSPHOROUS 3.8 mg/dL (2.5-4.9); POTASSIUM 3.7 mmol/L (3.5-5.1); SODIUM SERUM 142 mmol/L (136-145); UREA NITROGEN, BLOOD 52 mg/dL (7-18)
[2024-11-19 07:39] LABS: THYROID STIMULATING HORMONE 0.885 mIU/mL (0.358-3.740)
[2024-11-19] MEDS: MAGNESIUM SULFATE/D5W 100 ML IV SCH (08:23)
[2024-11-19 15:05] LABS: BAND % (MANUAL) 9 % (0-10); EOSINOPHILS % (MANUAL) 5 % (0-8); LYMPHOCYTES % (MANUAL) 19 % (20-40); MONOCYTES % (MANUAL) 19 % (2-10); NEUTROPHILS % (MANUAL) 48 % (42-75); PLATELET ESTIMATE ADEQUATE
[2024-11-19 15:06] LABS: ANISOCYTOSIS 1+
[2024-11-19] MEDS ORDERED: ZOLP5TAB2 PO (18:24)
[2024-11-19] MEDS ORDERED: MENT113O TP (18:24)
[2024-11-19] MEDS ORDERED: METO-357 PO (18:24)
[2024-11-19] MEDS ORDERED: DOCU-141 PO (18:24)
[2024-11-19] MEDS ORDERED: ACET325T53 PO (18:24)
[2024-11-19] MEDS ORDERED: AMIO200T6 PO (18:24)
[2024-11-19] MEDS ORDERED: POLY17PO4 PO (18:24)
[2024-11-19] MEDS ORDERED: OMEG1CAP PO (18:24)
[2024-11-19] MEDS ORDERED: APIX5TAB PO (18:24)
[2024-11-20] MEDS ORDERED: MAGN30OR PO (01:29)
[2024-11-20] MEDS ORDERED: ONDA4VIA52 IV (01:33)
[2024-11-20 02:06] LABS: CANCER ANTIGEN 15-3 60.6 U/mL (0.0-25.0); CARBOHYDRATE ANTIGEN, 19-9 90 U/mL (0-35)
[2024-11-20 05:08] LABS: FOLATE (FOLIC ACID), SERUM 7.8 ng/mL (>3.0)
[2024-11-20 07:07] LABS: *IMMUNOGLOBULIN G, SERUM 629 mg/dL (586-1602); IMMUNOGLOBULIN A, SERUM 90 mg/dL (64-422); IMMUNOGLOBULIN M, SERUM 38 mg/dL (26-217)
[2024-11-20 11:07] LABS: FREE KAPPA LT CHAINS SERUM 27.9 mg/L (3.3-19.4); FREE LAMBDA LT CHAIN SERUM 22.7 mg/L (5.7-26.3); KAPPA/LAMBDA RATIO SERUM 1.23 (0.26-1.65)
[2024-11-20] MEDS ORDERED: SOD FERRIC GLUC COMPLX/SUCROSE 125 MG in IV NORMAL SALINE 100 ML IV SCH (14:00)
[2024-11-21 09:07] LABS: ALBUMIN 3.1 g/dL (2.9-4.4); ALPHA-1-GLOBULIN 0.4 g/dL (0.0-0.4); ALPHA-2-GLOBULIN 1.2 g/dL (0.4-1.0); GAMMA GLOBULIN 0.6 g/dL (0.4-1.8); GLOBULIN, TOTAL 3.1 g/dL (2.2-3.9); M-SPIKE Not Observed g/dL (Not Observed); PROTEIN, TOTAL 6.2 g/dL (6.0-8.5)
[2024-11-25 12:08] LABS: A/G RATIO 1.1 (0.7-1.7); ALBUMIN 2.9 g/dL (2.9-4.4); ALPHA-1-GLOBULIN 0.3 g/dL (0.0-0.4); BETA GLOBULIN 0.9 g/dL (0.7-1.3); GAMMA GLOBULIN 0.5 g/dL (0.4-1.8); GLOBULIN, TOTAL 2.7 g/dL (2.2-3.9); M-SPIKE Not Observed g/dL (Not Observed); PROTEIN, TOTAL 5.6 g/dL (6.0-8.5)
== END 2024-11-19 18:45 | DRG 175 ==
LOC: TELE3 22:38
PROVIDERS: ADMIT Internal Medicine; ATTEND Internal Medicine
PROC: 05HB33Z Insertion of Infusion Device into Right Basilic Vein, Percutaneous Approach (ICD-10-PCS; principal; 2024-11-15)
DX: I26.99 Other pulmonary embolism without acute cor pulmonale (principal); I50.23 Acute on chronic systolic (congestive) heart failure; J15.9 Unspecified bacterial pneumonia; J96.21 Acute and chronic respiratory failure with hypoxia; C79.51 Secondary malignant neoplasm of bone; I13.0 Hypertensive heart and chronic kidney disease with heart failure and stage 1 through stage 4 chronic kidney disease, or unspecified chronic kidney disease; I42.9 Cardiomyopathy, unspecified; C78.02 Secondary malignant neoplasm of left lung; C78.01 Secondary malignant neoplasm of right lung; J44.0 Chronic obstructive pulmonary disease with (acute) lower respiratory infection; N17.9 Acute kidney failure, unspecified; D68.59 Other primary thrombophilia; K86.2 Cyst of pancreas; J84.9 Interstitial pulmonary disease, unspecified; Z90.12 Acquired absence of left breast and nipple; Z92.3 Personal history of irradiation; Z92.21 Personal history of antineoplastic chemotherapy; Z95.0 Presence of cardiac pacemaker; Z86.16 Personal history of COVID-19; I48.0 Paroxysmal atrial fibrillation; E66.9 Obesity, unspecified; Z68.32 Body mass index [BMI] 32.0-32.9, adult; I25.10 Atherosclerotic heart disease of native coronary artery without angina pectoris; R22.2 Localized swelling, mass and lump, trunk; D53.9 Nutritional anemia, unspecified; E11.22 Type 2 diabetes mellitus with diabetic chronic kidney disease; N18.9 Chronic kidney disease, unspecified; T45.516A Underdosing of anticoagulants, initial encounter; Z91.128 Patient's intentional underdosing of medication regimen for other reason; Y92.039 Unspecified place in apartment as the place of occurrence of the external cause
CPT/HCPCS: 36415; 71045; 71250; 76770; 82378; 82746; 82784; 83735; 83970; 84100; 84155; 84165; 84443; 85025; 85730; 86140; 86300; 86301; 86334; 93005; 93307; 94760; A4663; G0378; J0692; J1938; J3370; J3475; J3490; J7040; J7050

== ENCOUNTER 2024-11-18 10:50 | Inpatient (IN) | payer MEDICARE, OTHER ==
[~2024-11-18] VITALS: Ht 170.2 cm; Wt 95.3 kg
[~2024-11-18 10:50] MED LIST: ACET325T53 PO; AMIO100T4 PO; ANAS1TAB50 PO; APIX5TAB PO; CHOL100062 PO; DENO120V SQ; DILT120T2 PO; FURO20TA4 PO; ICOS1CAP PO; METF-442 PO; METO-358 PO; VALS1TAB4 PO; [UNRECOGNIZED DRUG - CODE] IV
[2024-11-18 11:48] VITALS: BP 149/52; TEMP 97.7
[2024-11-18 12:26] VITALS: BP 149/52; TEMP 97.7
[2024-11-19] MEDS ORDERED: POLY17PO4 PO (18:24)
[2024-11-19] MEDS ORDERED: METO-357 PO (18:24)
[2024-11-19] MEDS ORDERED: ACET325T53 PO (18:24)
[2024-11-19] MEDS ORDERED: DOCU-141 PO (18:24)
[2024-11-19] MEDS ORDERED: APIX5TAB PO (18:24)
[2024-11-19] MEDS ORDERED: AMIO200T6 PO (18:24)
[2024-11-19] MEDS ORDERED: MENT113O TP (18:24)
[2024-11-19] MEDS ORDERED: ZOLP5TAB2 PO (18:24)
[2024-11-19] MEDS ORDERED: OMEG1CAP PO (18:24)
[2024-11-19] MEDS ORDERED: REMEDY ESSENTIAL ZINC PASTE 113 GM TOP PRN (20:45)
[2024-11-19 22:46] VITALS: BP 140/47; TEMP 98.2; O2SAT 95
[2024-11-20] MEDS ORDERED: MAGN30OR PO (01:29)
[2024-11-20] MEDS ORDERED: CALMOSEPTINE 113 GM OINTMENT TP PRN (01:30)
[2024-11-20] MEDS ORDERED: HOME MED MISCELLANEOUS XX SCH ×3 (01:30)
[2024-11-20] MEDS ORDERED: MIRALAX 17 GM POWD.PACK PO PRN (01:30)
[2024-11-20] MEDS ORDERED: ACETAMINOPHEN 325 MG TABLET-SA PATIENTS-PAIN ONLY PO PRN (01:30)
[2024-11-20] MEDS ORDERED: ONDA4VIA52 IV (01:33)
[2024-11-20 06:51] VITALS: BP 134/51; TEMP 98.3; O2SAT 95
[2024-11-20 07:50] VITALS: TEMP 98.2
[2024-11-20] MEDS: ANASTROZOLE 1 MG TABLET PO SCH (09:26)
[2024-11-20] MEDS: METOPROLOL SUCCINATE XL 50 MG TAB.SR.24H PO SCH (09:26)
[2024-11-20] MEDS: AMIODARONE HCL 200 MG TABLET PO SCH (09:27)
[2024-11-20] MEDS: OMEGA-3 FATTY ACIDS/FISH OIL CAPSULE PO SCH (09:27)
[2024-11-20] MEDS: APIXABAN 5 MG TABLET PO SCH (10:14)
[2024-11-20 16:09] VITALS: TEMP 97.2
[2024-11-20] MEDS: DOCUSATE SODIUM 100 MG CAPSULE PO SCH (20:38)
[2024-11-20 20:55] VITALS: O2SAT 95
[2024-11-20 21:09] VITALS: BP 132/42; TEMP 97.4; O2SAT 94
[2024-11-20] MEDS: ZOLPIDEM 5 MG TABLET PO PRN (22:37)
[2024-11-21 06:41] VITALS: BP 111/46; TEMP 98.3; O2SAT 95
[2024-11-21 08:00] VITALS: TEMP 97.8
[2024-11-21 08:18] LABS: BASOPHILS # (AUTO) 0.1 K/UL (0.0-0.2); BASOPHILS % (AUTO) 1.1 % (0.0-2.0); EOSINOPHILS # (AUTO) 0.3 K/uL (0.0-0.7); EOSINOPHILS % (AUTO) 5.1 % (0.0-7.0); HEMATOCRIT 28.7 % (31.2-41.9); HEMOGLOBIN 9.7 g/dL (10.9-14.3); LYMPHOCYTES # (AUTO) 1.3 K/uL (0.8-4.8); LYMPHOCYTES % (AUTO) 18.4 % (20.5-51.5); MEAN CORPUSCULAR HEMOGLOBIN 35.1 uug (24.7-32.8); MEAN CORPUSCULAR HGB CONC 34 g/dL (32.3-35.6); MEAN CORPUSCULAR VOLUME 103.8 fL (75.5-95.3); MONOCYTES % (AUTO) 15.2 % (0.0-11.0); NEUTROPHILS # (AUTO) 4.1 K/uL (1.8-8.9); NEUTROPHILS % (AUTO) 60.2 % (38.5-71.5); PLATELET COUNT (AUTO) 353 K/uL (179-408); RED BLOOD CELL COUNT(AUTO) 2.77 MIL/uL (3.63-4.92); RED CELL DISTRIBUTION WIDTH 15.8 % (12.3-17.7); WHITE BLOOD COUNT (AUTO) 6.9 K/uL (3.8-11.8)
[2024-11-21 08:30] LABS: DIFFERENTIAL COMMENT 1
[2024-11-21 08:32] LABS: ALANINE AMINOTRANSFERASE 28 U/L (14-59); ALBUMIN 2.7 g/dL (3.4-5.0); ALKALINE PHOSPHATASE 57 U/L (50-136); ASPARTATE AMINOTRANSFERASE 27 U/L (15-37); BILIRUBIN,TOTAL 0.3 mg/dL (0.2-1.0); CALCIUM 9.5 mg/dL (8.5-10.1); CARBON DIOXIDE 23 mmol/L (21-32); CHLORIDE 110 mmol/L (98-107); CREATININE 1.8 mg/dL (0.6-1.3); GLUCOSE 126 mg/dL (74-106); POTASSIUM 4.2 mmol/L (3.5-5.1); SODIUM SERUM 143 mmol/L (136-145); TOTAL PROTEIN, SERUM 6.2 g/dL (6.4-8.2); UREA NITROGEN, BLOOD 40 mg/dL (7-18)
[2024-11-21 12:12] LABS: ANISOCYTOSIS 1+; EOSINOPHILS % (MANUAL) 6 % (0-8); LYMPHOCYTES % (MANUAL) 18 % (20-40); MONOCYTES % (MANUAL) 15 % (2-10); NEUTROPHILS % (MANUAL) 60 % (42-75); PLATELET ESTIMATE ADEQUATE
[2024-11-21] MEDS: SOD FERRIC GLUC COMPLX/SUCROSE 125 MG in IV NORMAL SALINE 100 ML IV SCH (15:32)
[2024-11-21 21:17] VITALS: BP 128/41; TEMP 98.1; O2SAT 92
[2024-11-21] MEDS: ACETAMINOPHEN 325 MG TABLET PO PRN (21:54)
[2024-11-22 06:47] VITALS: BP 125/50; TEMP 98.3; O2SAT 94
[2024-11-22 07:34] VITALS: BP 139/59; TEMP 98.1; O2SAT 94
[2024-11-22 08:14] LABS: BASOPHILS # (AUTO) 0.1 K/UL (0.0-0.2); BASOPHILS % (AUTO) 1.2 % (0.0-2.0); EOSINOPHILS # (AUTO) 0.3 K/uL (0.0-0.7); EOSINOPHILS % (AUTO) 5.6 % (0.0-7.0); HEMATOCRIT 29.6 % (31.2-41.9); HEMOGLOBIN 10.2 g/dL (10.9-14.3); LYMPHOCYTES # (AUTO) 1.1 K/uL (0.8-4.8); LYMPHOCYTES % (AUTO) 17.8 % (20.5-51.5); MEAN CORPUSCULAR HEMOGLOBIN 35.4 uug (24.7-32.8); MEAN CORPUSCULAR HGB CONC 34 g/dL (32.3-35.6); MEAN CORPUSCULAR VOLUME 103.3 fL (75.5-95.3); MONOCYTES # (AUTO) 0.9 K/uL (0.1-1.30); MONOCYTES % (AUTO) 14.4 % (0.0-11.0); NEUTROPHILS # (AUTO) 3.7 K/uL (1.8-8.9); PLATELET COUNT (AUTO) 353 K/uL (179-408); RED BLOOD CELL COUNT(AUTO) 2.87 MIL/uL (3.63-4.92); RED CELL DISTRIBUTION WIDTH 15.9 % (12.3-17.7); WHITE BLOOD COUNT (AUTO) 6.1 K/uL (3.8-11.8)
[2024-11-22 08:28] LABS: DIFFERENTIAL COMMENT 1
[2024-11-22 08:46] LABS: ALANINE AMINOTRANSFERASE 23 U/L (14-59); ALBUMIN 2.7 g/dL (3.4-5.0); ALKALINE PHOSPHATASE 56 U/L (50-136); ASPARTATE AMINOTRANSFERASE 22 U/L (15-37); BILIRUBIN,TOTAL 0.3 mg/dL (0.2-1.0); CALCIUM 9.1 mg/dL (8.5-10.1); CARBON DIOXIDE 24 mmol/L (21-32); CHLORIDE 110 mmol/L (98-107); CREATININE 1.7 mg/dL (0.6-1.3); GLUCOSE 128 mg/dL (74-106); MAGNESIUM 1.9 mg/dL (1.8-2.4); PHOSPHOROUS 3.5 mg/dL (2.5-4.9); POTASSIUM 4.2 mmol/L (3.5-5.1); SODIUM SERUM 143 mmol/L (136-145); TOTAL PROTEIN, SERUM 6.1 g/dL (6.4-8.2); UREA NITROGEN, BLOOD 41 mg/dL (7-18)
[2024-11-22] MEDS: APIXABAN 5 MG TABLET PO SCH (08:56)
[2024-11-22] MEDS ORDERED: APIXABAN 2.5 MG TABLET PO SCH (09:00)
[2024-11-22] MEDS: LACTULOSE 20 G/30 ML LIQUID UDC PO ONE (10:54)
[2024-11-22 15:11] VITALS: BP 157/55; TEMP 97.9; O2SAT 95
[2024-11-22 20:13] VITALS: BP 144/57; TEMP 98.3; O2SAT 92
[2024-11-22] MEDS: CALCIUM CARBONATE 500 MG TAB.CHEW ONE (21:52)
[2024-11-23 05:40] VITALS: BP 132/46; TEMP 98.2; O2SAT 93
[2024-11-23 08:00] VITALS: BP 144/58; TEMP 97.6; O2SAT 95
[2024-11-23 16:13] VITALS: BP 146/54; TEMP 97.9; O2SAT 95
[2024-11-23 20:54] VITALS: BP 156/63; TEMP 98.5; O2SAT 95
[2024-11-24 07:03] VITALS: BP 117/69; TEMP 97.2; O2SAT 96
[2024-11-24 08:17] LABS: BASOPHILS # (AUTO) 0.1 K/UL (0.0-0.2); BASOPHILS % (AUTO) 0.9 % (0.0-2.0); EOSINOPHILS # (AUTO) 0.4 K/uL (0.0-0.7); EOSINOPHILS % (AUTO) 5.2 % (0.0-7.0); HEMATOCRIT 30.8 % (31.2-41.9); HEMOGLOBIN 10.6 g/dL (10.9-14.3); LYMPHOCYTES # (AUTO) 1.1 K/uL (0.8-4.8); LYMPHOCYTES % (AUTO) 16.5 % (20.5-51.5); MEAN CORPUSCULAR HEMOGLOBIN 36.6 uug (24.7-32.8); MEAN CORPUSCULAR HGB CONC 34 g/dL (32.3-35.6); MEAN CORPUSCULAR VOLUME 106.2 fL (75.5-95.3); MONOCYTES # (AUTO) 0.9 K/uL (0.1-1.30); MONOCYTES % (AUTO) 13.2 % (0.0-11.0); NEUTROPHILS # (AUTO) 4.4 K/uL (1.8-8.9); NEUTROPHILS % (AUTO) 64.2 % (38.5-71.5); PLATELET COUNT (AUTO) 361 K/uL (179-408); RED CELL DISTRIBUTION WIDTH 15.9 % (12.3-17.7); WHITE BLOOD COUNT (AUTO) 6.9 K/uL (3.8-11.8)
[2024-11-24 08:21] LABS: DIFFERENTIAL COMMENT 1
[2024-11-24 08:35] VITALS: TEMP 97.2
[2024-11-24 09:39] LABS: LYMPHOCYTES % (MANUAL) 17 % (20-40); MONOCYTES % (MANUAL) 13 % (2-10); NEUTROPHILS % (MANUAL) 64 % (42-75)
[2024-11-24 09:40] LABS: ANISOCYTOSIS 1+; EOSINOPHILS % (MANUAL) 6 % (0-8); PLATELET ESTIMATE ADEQUATE
[2024-11-24 16:00] VITALS: TEMP 97.2
[2024-11-24 20:11] VITALS: BP 145/50; TEMP 98.6; O2SAT 96
[2024-11-25 06:34] VITALS: BP 142/55; TEMP 98.4; O2SAT 96
[2024-11-25 08:00] VITALS: TEMP 97.7
[2024-11-25 08:10] LABS: BASOPHILS # (AUTO) 0.1 K/UL (0.0-0.2); BASOPHILS % (AUTO) 0.7 % (0.0-2.0); EOSINOPHILS # (AUTO) 0.3 K/uL (0.0-0.7); EOSINOPHILS % (AUTO) 4.7 % (0.0-7.0); HEMATOCRIT 30.9 % (31.2-41.9); HEMOGLOBIN 10.4 g/dL (10.9-14.3); LYMPHOCYTES % (AUTO) 13.8 % (20.5-51.5); MEAN CORPUSCULAR HEMOGLOBIN 35.2 uug (24.7-32.8); MEAN CORPUSCULAR HGB CONC 34 g/dL (32.3-35.6); MEAN CORPUSCULAR VOLUME 104.3 fL (75.5-95.3); MONOCYTES # (AUTO) 0.8 K/uL (0.1-1.30); NEUTROPHILS # (AUTO) 4.9 K/uL (1.8-8.9); NEUTROPHILS % (AUTO) 69.8 % (38.5-71.5); PLATELET COUNT (AUTO) 347 K/uL (179-408); RED BLOOD CELL COUNT(AUTO) 2.96 MIL/uL (3.63-4.92); RED CELL DISTRIBUTION WIDTH 15.5 % (12.3-17.7)
[2024-11-25 08:21] LABS: DIFFERENTIAL COMMENT 1
[2024-11-25 08:24] LABS: CARBON DIOXIDE 23 mmol/L (21-32); CHLORIDE 110 mmol/L (98-107); CREATININE 1.5 mg/dL (0.6-1.3); GLUCOSE 141 mg/dL (74-106); MAGNESIUM 1.8 mg/dL (1.8-2.4); PHOSPHOROUS 3.7 mg/dL (2.5-4.9); POTASSIUM 4.1 mmol/L (3.5-5.1); SODIUM SERUM 144 mmol/L (136-145); UREA NITROGEN, BLOOD 35 mg/dL (7-18)
[2024-11-25] MEDS: MIRALAX 17 GM POWD.PACK PO SCH (10:00)
[2024-11-25 16:49] VITALS: TEMP 97.1
[2024-11-25 20:26] VITALS: BP 150/58; TEMP 98; O2SAT 95
[2024-11-26 06:43] VITALS: BP 149/58; TEMP 97.8; O2SAT 97
[2024-11-26 07:32] LABS: BASOPHILS # (AUTO) 0.1 K/UL (0.0-0.2); BASOPHILS % (AUTO) 1.1 % (0.0-2.0); EOSINOPHILS # (AUTO) 0.4 K/uL (0.0-0.7); EOSINOPHILS % (AUTO) 5.4 % (0.0-7.0); HEMATOCRIT 29.2 % (31.2-41.9); HEMOGLOBIN 10.1 g/dL (10.9-14.3); LYMPHOCYTES # (AUTO) 1.1 K/uL (0.8-4.8); LYMPHOCYTES % (AUTO) 15.4 % (20.5-51.5); MEAN CORPUSCULAR HEMOGLOBIN 36.3 uug (24.7-32.8); MEAN CORPUSCULAR HGB CONC 35 g/dL (32.3-35.6); MEAN CORPUSCULAR VOLUME 104.8 fL (75.5-95.3); MONOCYTES # (AUTO) 0.7 K/uL (0.1-1.30); MONOCYTES % (AUTO) 10.6 % (0.0-11.0); NEUTROPHILS # (AUTO) 4.7 K/uL (1.8-8.9); NEUTROPHILS % (AUTO) 67.5 % (38.5-71.5); PLATELET COUNT (AUTO) 312 K/uL (179-408); RED BLOOD CELL COUNT(AUTO) 2.79 MIL/uL (3.63-4.92); RED CELL DISTRIBUTION WIDTH 15.8 % (12.3-17.7); WHITE BLOOD COUNT (AUTO) 6.9 K/uL (3.8-11.8)
[2024-11-26 07:45] LABS: DIFFERENTIAL COMMENT 1
[2024-11-26 07:47] LABS: CALCIUM 8.5 mg/dL (8.5-10.1); CARBON DIOXIDE 22 mmol/L (21-32); CHLORIDE 109 mmol/L (98-107); CREATININE 1.6 mg/dL (0.6-1.3); GLUCOSE 131 mg/dL (74-106); SODIUM SERUM 143 mmol/L (136-145); UREA NITROGEN, BLOOD 32 mg/dL (7-18)
[2024-11-26 08:00] VITALS: BP 145/59; TEMP 97.6; O2SAT 97
[2024-11-26 15:59] VITALS: BP 160/69; TEMP 97.8; O2SAT 97
[2024-11-26 22:33] VITALS: BP 148/53; TEMP 98.1; O2SAT 95
[2024-11-27 07:05] VITALS: BP 141/55; TEMP 97.5; O2SAT 95
[2024-11-27 08:00] VITALS: BP 132/63; TEMP 98; O2SAT 99
[2024-11-27 08:53] LABS: BASOPHILS # (AUTO) 0.1 K/UL (0.0-0.2); BASOPHILS % (AUTO) 1.2 % (0.0-2.0); DIFFERENTIAL COMMENT 0; EOSINOPHILS # (AUTO) 0.4 K/uL (0.0-0.7); HEMATOCRIT 30.7 % (31.2-41.9); HEMOGLOBIN 10.7 g/dL (10.9-14.3); LYMPHOCYTES % (AUTO) 13.5 % (20.5-51.5); MEAN CORPUSCULAR HEMOGLOBIN 36.1 uug (24.7-32.8); MEAN CORPUSCULAR HGB CONC 35 g/dL (32.3-35.6); MEAN CORPUSCULAR VOLUME 103.7 fL (75.5-95.3); MONOCYTES # (AUTO) 0.7 K/uL (0.1-1.30); NEUTROPHILS % (AUTO) 70.3 % (38.5-71.5); PLATELET COUNT (AUTO) 311 K/uL (179-408); RED BLOOD CELL COUNT(AUTO) 2.96 MIL/uL (3.63-4.92); RED CELL DISTRIBUTION WIDTH 15.8 % (12.3-17.7); WHITE BLOOD COUNT (AUTO) 7.2 K/uL (3.8-11.8)
[2024-11-27 13:37] VITALS: BP 154/55; O2SAT 95
[2024-11-27 16:00] VITALS: BP 148/61; TEMP 97.6; O2SAT 98
[2024-11-27 22:57] VITALS: BP 173/69; TEMP 98.2; O2SAT 90
[2024-11-28 03:13] VITALS: BP_SYST 146
[2024-11-28 07:15] VITALS: BP 132/47; TEMP 98.2; O2SAT 93
[2024-11-28 07:41] LABS: BASOPHILS # (AUTO) 0.1 K/UL (0.0-0.2); BASOPHILS % (AUTO) 0.9 % (0.0-2.0); EOSINOPHILS # (AUTO) 0.3 K/uL (0.0-0.7); EOSINOPHILS % (AUTO) 4.3 % (0.0-7.0); HEMOGLOBIN 10.4 g/dL (10.9-14.3); LYMPHOCYTES # (AUTO) 1.1 K/uL (0.8-4.8); LYMPHOCYTES % (AUTO) 14.8 % (20.5-51.5); MEAN CORPUSCULAR HEMOGLOBIN 35.9 uug (24.7-32.8); MEAN CORPUSCULAR HGB CONC 35 g/dL (32.3-35.6); MEAN CORPUSCULAR VOLUME 103.5 fL (75.5-95.3); MONOCYTES # (AUTO) 0.9 K/uL (0.1-1.30); MONOCYTES % (AUTO) 11.9 % (0.0-11.0); NEUTROPHILS % (AUTO) 68.1 % (38.5-71.5); PLATELET COUNT (AUTO) 297 K/uL (179-408); RED CELL DISTRIBUTION WIDTH 15.7 % (12.3-17.7); WHITE BLOOD COUNT (AUTO) 7.4 K/uL (3.8-11.8)
[2024-11-28 07:50] LABS: DIFFERENTIAL COMMENT 1
[2024-11-28 07:59] LABS: IRON, SERUM 34 ug/dL (50-175)
[2024-11-28 08:00] VITALS: BP 165/58; TEMP 97.7; O2SAT 94
[2024-11-28 08:08] LABS: FERRITIN 546 ng/mL (8-252)
[2024-11-28 15:29] VITALS: BP 160/66; TEMP 98.7; O2SAT 94
[2024-11-28 21:20] VITALS: BP 154/54; O2SAT 93
[2024-11-28 21:30] VITALS: BP 134/47; TEMP 98.5; O2SAT 92
[2024-11-29 07:30] LABS: CALCIUM 8.6 mg/dL (8.5-10.1); CARBON DIOXIDE 25 mmol/L (21-32); CHLORIDE 108 mmol/L (98-107); CREATININE 1.4 mg/dL (0.6-1.3); GLUCOSE 131 mg/dL (74-106); MAGNESIUM 1.6 mg/dL (1.8-2.4); PHOSPHOROUS 3.4 mg/dL (2.5-4.9); SODIUM SERUM 143 mmol/L (136-145); UREA NITROGEN, BLOOD 31 mg/dL (7-18)
[2024-11-29 07:34] LABS: BASOPHILS # (AUTO) 0.1 K/UL (0.0-0.2); BASOPHILS % (AUTO) 1.1 % (0.0-2.0); DIFFERENTIAL COMMENT 0; EOSINOPHILS # (AUTO) 0.3 K/uL (0.0-0.7); EOSINOPHILS % (AUTO) 4.7 % (0.0-7.0); HEMATOCRIT 32.7 % (31.2-41.9); HEMOGLOBIN 11.2 g/dL (10.9-14.3); LYMPHOCYTES # (AUTO) 1.2 K/uL (0.8-4.8); LYMPHOCYTES % (AUTO) 17.3 % (20.5-51.5); MEAN CORPUSCULAR HEMOGLOBIN 35.5 uug (24.7-32.8); MEAN CORPUSCULAR HGB CONC 34 g/dL (32.3-35.6); MEAN CORPUSCULAR VOLUME 103.9 fL (75.5-95.3); MONOCYTES # (AUTO) 0.8 K/uL (0.1-1.30); NEUTROPHILS # (AUTO) 4.5 K/uL (1.8-8.9); NEUTROPHILS % (AUTO) 64.9 % (38.5-71.5); PLATELET COUNT (AUTO) 297 K/uL (179-408); RED BLOOD CELL COUNT(AUTO) 3.14 MIL/uL (3.63-4.92); RED CELL DISTRIBUTION WIDTH 15.9 % (12.3-17.7)
[2024-11-29 07:36] VITALS: BP 131/39; TEMP 97.4; O2SAT 94
[2024-11-29 08:13] VITALS: BP 155/61; TEMP 98.3; O2SAT 94
[2024-11-29] MEDS: MAGNESIUM OXIDE 400 MG TABLET PO ONE (12:29)
[2024-11-29 16:12] VITALS: TEMP 98.1
[2024-11-29] MEDS ORDERED: DOCUSATE SODIUM 100 MG CAPSULE PO PRN (17:30)
[2024-11-29 20:06] VITALS: BP 152/54; TEMP 98.4; O2SAT 93
[2024-11-30 05:20] VITALS: BP 153/54; TEMP 98.3; O2SAT 92
[2024-11-30 07:44] VITALS: TEMP 97.7
[2024-11-30 08:00] VITALS: BP 163/62; TEMP 97.8; O2SAT 95
[2024-11-30 16:39] VITALS: BP 149/58; TEMP 98.2; O2SAT 93
[2024-11-30] MEDS: hydrALAZINE HCL 20 MG/1 ML VIAL IV PRN (22:59)
[2024-12-01] MEDS: FUROSEMIDE 40 MG/4 ML VIAL IV ONE (00:24)
[2024-12-01 06:30] LABS: BASOPHILS # (AUTO) 0.1 K/UL (0.0-0.2); BASOPHILS % (AUTO) 0.9 % (0.0-2.0); EOSINOPHILS % (AUTO) 0.4 % (0.0-7.0); HEMATOCRIT 33.1 % (31.2-41.9); HEMOGLOBIN 11.3 g/dL (10.9-14.3); LYMPHOCYTES # (AUTO) 0.5 K/uL (0.8-4.8); LYMPHOCYTES % (AUTO) 4.8 % (20.5-51.5); MEAN CORPUSCULAR HEMOGLOBIN 35.4 uug (24.7-32.8); MEAN CORPUSCULAR HGB CONC 34 g/dL (32.3-35.6); MEAN CORPUSCULAR VOLUME 103.5 fL (75.5-95.3); MONOCYTES # (AUTO) 0.9 K/uL (0.1-1.30); MONOCYTES % (AUTO) 8.7 % (0.0-11.0); NEUTROPHILS # (AUTO) 8.6 K/uL (1.8-8.9); NEUTROPHILS % (AUTO) 85.2 % (38.5-71.5); PLATELET COUNT (AUTO) 283 K/uL (179-408); RED CELL DISTRIBUTION WIDTH 15.7 % (12.3-17.7); WHITE BLOOD COUNT (AUTO) 10.1 K/uL (3.8-11.8)
[2024-12-01 06:34] VITALS: BP 125/42; TEMP 98.3; O2SAT 96
[2024-12-01 06:40] LABS: CALCIUM 8.6 mg/dL (8.5-10.1); CARBON DIOXIDE 28 mmol/L (21-32); CHLORIDE 107 mmol/L (98-107); CREATININE 1.4 mg/dL (0.6-1.3); DIFFERENTIAL COMMENT 1; GLUCOSE 146 mg/dL (74-106); POTASSIUM 3.9 mmol/L (3.5-5.1); SODIUM SERUM 143 mmol/L (136-145); UREA NITROGEN, BLOOD 27 mg/dL (7-18)
[2024-12-01 08:11] VITALS: BP 127/48; TEMP 98.1; O2SAT 96
[2024-12-01 09:46] VITALS: BP 127/48
== END 2024-12-01 14:30 | disposition home health service (06) | DRG 175 ==
PROVIDERS: ADMIT Physical Medicine & Rehabilitation Pain Medicine; ATTEND Physical Medicine & Rehabilitation
DX: I26.99 Other pulmonary embolism without acute cor pulmonale (principal); I50.43 Acute on chronic combined systolic (congestive) and diastolic (congestive) heart failure; J96.21 Acute and chronic respiratory failure with hypoxia; J15.9 Unspecified bacterial pneumonia; N17.9 Acute kidney failure, unspecified; I13.0 Hypertensive heart and chronic kidney disease with heart failure and stage 1 through stage 4 chronic kidney disease, or unspecified chronic kidney disease; I42.9 Cardiomyopathy, unspecified; D68.59 Other primary thrombophilia; C78.00 Secondary malignant neoplasm of unspecified lung; C79.51 Secondary malignant neoplasm of bone; J44.0 Chronic obstructive pulmonary disease with (acute) lower respiratory infection; K86.2 Cyst of pancreas; N18.9 Chronic kidney disease, unspecified; I48.0 Paroxysmal atrial fibrillation; I27.20 Pulmonary hypertension, unspecified; R53.1 Weakness; E88.09 Other disorders of plasma-protein metabolism, not elsewhere classified; Z85.3 Personal history of malignant neoplasm of breast; D64.9 Anemia, unspecified; E11.22 Type 2 diabetes mellitus with diabetic chronic kidney disease; E78.5 Hyperlipidemia, unspecified; F41.9 Anxiety disorder, unspecified; Z68.32 Body mass index [BMI] 32.0-32.9, adult; E66.9 Obesity, unspecified; Z79.01 Long term (current) use of anticoagulants; Z90.12 Acquired absence of left breast and nipple; Z95.0 Presence of cardiac pacemaker; Z92.21 Personal history of antineoplastic chemotherapy; Z92.3 Personal history of irradiation
CPT/HCPCS: 36415; 71045; 74181; 83550; 83735; 84100; 85025; 85730; 97535-GO-CO; A4663; J0360; J1938; J2916